=== PATIENT | male | born 1975 | race Caucasian/White ===

== ENCOUNTER 2023-08-20 13:56 | Emergency (ER) | payer OTHER ==
[~2023-08-20] VITALS: Ht 175.3 cm; Wt 91.2 kg
[2023-08-20] MEDS ORDERED: EPINEPHRINE (1:1000) 1 MG/ML AMPUL SUBCUT ONE (15:00)
[2023-08-20] MEDS ORDERED: FAMOTIDINE/PF INJ 20 MG/2 ML VIAL IV ONE ×2 (15:00→15:01)
[2023-08-20] MEDS ORDERED: diphenhydrAMINE HCL 50 MG/ML VIAL ONE (15:00)
[2023-08-20] MEDS ORDERED: diphenhydrAMINE HCL 50 MG/ML VIAL IV ONE (15:00)
[2023-08-20] MEDS ORDERED: EPINEPHRINE (1:1000) 1 MG/ML AMPUL ONE (15:00)
[2023-08-20] MEDS ORDERED: methylPREDNISolone SOD SUCC 125 MG/2ML VIAL IV ONE (15:00)
[2023-08-20] MEDS ORDERED: methylPREDNISolone SOD SUCC 125 MG/2ML VIAL ONE (15:00)
[2023-08-20 15:50] LABS: BASOPHILS % (AUTO) 0.2 % (0.0-2.0); EOSINOPHILS # (AUTO) 0.1 K/uL (0.0-0.7); HEMATOCRIT 40 % (39-51); HEMOGLOBIN 13.7 g/dL (13.5-17.5); LYMPHOCYTES # (AUTO) 1.1 K/uL (0.8-4.8); LYMPHOCYTES % (AUTO) 13.9 % (20.0-44.0); MEAN CORPUSCULAR HEMOGLOBIN 31 PG (26.0-33.0); MEAN CORPUSCULAR HGB CONC 34 g/dl (31.0-36.0); MEAN CORPUSCULAR VOLUME 91 fL (80-96); MONOCYTES # (AUTO) 0.7 K/uL (0.1-1.30); MONOCYTES % (AUTO) 8.8 % (2.0-12.0); NEUTROPHILS # (AUTO) 5.8 K/uL (1.8-8.9); NEUTROPHILS % (AUTO) 76.1 % (43.0-81.0); PLATELET COUNT (AUTO) 192 K/uL (150-450); RED BLOOD CELL COUNT(AUTO) 4.45 MIL/uL (4.5-6.0); RED CELL DISTRIBUTION WIDTH 13.2 % (11.5-15.0); WHITE BLOOD COUNT (AUTO) 7.7 K/uL (4.3-11.0)
[2023-08-20 16:43] LABS: POTASSIUM 4.3 mmol/L (3.5-5.1)
[2023-08-20] MEDS ORDERED: EPIN0.3P3 IM (18:28)
[2023-08-20] MEDS ORDERED: PRED50TA PO (18:28)
[2023-08-20] MEDS ORDERED: DIPH25CA83 PO (18:28)
[2023-08-20] MEDS ORDERED: FAMO20TA8 PO (18:28)
[2023-08-20 18:51] VITALS: BP 131/81; TEMP 98.6; O2SAT 97
== END 2023-08-20 18:51 | disposition home or self-care (01) ==
LOC: ER 14:08
DX: T78.3XXA Angioneurotic edema, initial encounter (principal)
CPT/HCPCS: 99284; 96374; 96375; 85025; 80048; 36415; 96372; J1200; J0171; J3490; J2930